=== PATIENT | male | born 1965 | race Caucasian/White ===

== ENCOUNTER 2021-05-15 14:37 | Emergency (ER) | payer MEDICAID, SELFPAY ==
[2021-05-15 18:03] LABS: MANUAL DIFF FLAG NO
[2021-05-15 18:05] LABS: Basophils Absolute Auto 0.1 X10*3/uL (0.0-0.2); Basophils Percent Auto 1.2 % (0-2); Eosinophils Absolute Auto 0.2 X10*3/uL (0.0-0.4); Eosinophils Percent Auto 2.5 % (0-4); Hematocrit 48.8 % (42-52); Hemoglobin 16.6 g/dl (14.0-18.0); Imm Gran Abs Auto 0.01 X10*3/uL (0.00-0.03); Imm Gran Pct Auto 0.2 % (0.0-0.4); Lymphocytes Absolute Auto 2.5 X10*3/uL (1.2-4.9); Lymphocytes Percent Auto 38.3 % (20-40); Mean Corpuscular Volume 88.2 fL (80-98); Mean Platelet Volume 9.7 fL (9.4-12.4); Monocytes Absolute Auto 0.6 X10*3/uL (0.1-1.2); Monocytes Percent Auto 8.7 % (2-11); Neutrophils Absolute Auto 3.2 X10*3/uL (2.0-8.3); Neutrophils Percent Auto 49.1 % (45-73); Platelet Count 226 X10*3/uL (160-400); Red Blood Count 5.53 X10*6/uL (4.60-5.80); Red Cell Distribution Width 13.6 % (11.0-16.0); White Blood Count 6.4 X10*3/uL (4.8-10.8)
[2021-05-15 18:11] VITALS: BP 162/104; PULSE 59; RESP 18; TEMP 36.9; O2SAT 97
[2021-05-15 18:20] LABS: Alanine Aminotransferase 21 U/L (0-40); Albumin Level 4.3 g/dL (3.5-5.0); Alkaline Phosphatase 59 U/L (39-117); Anion Gap 13 (12-20); Aspartate Amino Transferase 21 U/L (5-37); Bilirubin Direct 0.3 mg/dL (0.0-0.5); Bilirubin Total 0.9 mg/dL (0.0-1.0); Blood Urea Nitrogen 11 mg/dL (9-16); Calcium 9.5 mg/dL (8.4-10.2); Carbon Dioxide 27 mmol/L (22-29); Chloride 108 mmol/L (96-108); Estimated Glomerular Filt Rate > 60; Glucose Random 90 mg/dL (60-115); Lipase 19 U/L (8-78); Potassium 4.2 mmol/L (3.3-5.1); Sodium 144 mmol/L (135-145); Total Protein 6.9 g/dL (6.5-8.0)
== END 2021-05-15 18:53 | disposition left against medical advice (07) ==
LOC: HO.ED 18:52
PROVIDERS: Emergency Provider Emergency Medicine
DX: R11.10 Vomiting, unspecified (principal)
CPT/HCPCS: 36415; 80053; 82248; 83690; 85025; 99283

== ENCOUNTER 2021-05-15 21:39 | Emergency (ER) | payer MEDICAID, SELFPAY ==
[2021-05-15 21:55] VITALS: BP 147/125; PULSE 16; RESP 16; TEMP 36.5; O2SAT 56; BMI 19.5
[2021-05-15 22:26] LABS: COVID-19 Test Negative (Negative)
--- NOTE | 2021-05-15 22:59 | ED.GENADULT ---
HPI - General Adult General Chief complaint: Nausea/Vomiting/Diarrhea Stated complaint: ? 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 Currently, patient denies fever, chills, dizziness, headache, sore throat, cough, GI or symptoms. And denies any shortness of breath or chest pain. Related Data Allergies Allergy/AdvReac Type Severity Reaction Status Date / Time No Known Allergies Allergy Verified 05/15/21 21:53 Review of Systems Review of Systems: Pertinent positives and negatives as stated in HPI 10 point review of systems is otherwise negative PMFSH Past Medical History Source: nursing notes reviewed Medical History No known health problems Social History Social History Advance Directives: No Advance Directives Information Provided: Yes Physical Exam Vital Signs: Vital Signs: Last Vital Signs Temp 97.7 F 05/15/21 21:55 Pulse 16 L 05/15/21 21:55 Resp 16 05/15/21 21:55 BP 147/125 H 05/15/21 21:55 Pulse Ox 56 L 05/15/21 21:55 Body Mass Index 19.5 VITAL SIGNS: Reviewed. GENERAL: Well developed, well nourished, in no acute distress. HEAD: Normocephalic/atraumatic EYES: PERRLA, EOMI EARS: Ext canals without abnormality OROPHARYNX: no oral lesions noted, posterior pharynx clear and non-erythematous without noted tonsillar enlargement/erythema/exudates NECK: Supple, no adenopathy LUNGS: Normal breath sounds CARDIOVASCULAR: Regular rate and rhythm without noted murmurs ABDOMEN: Soft, non-tender, non-distended with bowel sounds. SKIN: Inspection of the skin reveals no rashes NEUROLOGIC: Alert and oriented x 4. Strength and sensation to light touch were grossly intact x 4. Course Course Course Narrative: 56-year-old male with history and clinical presentation consistent with likely transient gastroenteritis which has since resolved and review of all investigations is otherwise negative. All results and findings were discussed with him at bedside via building maintenance worker and he was discharged home in stable condition Medical Decision Making Lab Data Labs: Lab Results 05/15/21 Range/Units 22:03 COVID-19 (CRISTIANE) Negative (Negative) COVID-19 Clin Com See Note Discharge Plan Discharge Clinical Impression: Gastroenteritis, Lab test negative for COVID-19 virus Patient Disposition: Home, Self-Care Instructions: Gastroenteritis (ED) Additional Instructions: 1. Reanude todos los medicamentos caseros seg?n lo prescrito. 2. Granados prueba de COVID-19 aqu? hoy fue negativa. Regrese a la karlo de emergencias por un empeoramiento mati de los s?ntomas. Stand Alone Forms: Work/School Release Print Language: Anguillan
[2021-05-15 23:02] VITALS: RESP 18; O2SAT 98
== END 2021-05-15 23:08 | disposition home or self-care (01) ==
PROVIDERS: Emergency Provider Student in an Organized Health Care Education/Training Program
DX: K52.9 Noninfective gastroenteritis and colitis, unspecified (principal); Z20.822 Contact with and (suspected) exposure to COVID-19
CPT/HCPCS: 36415; 87635; 99283

== ENCOUNTER 2023-02-21 13:31 | Emergency (ER) | payer MEDICAID, SELFPAY ==
--- NOTE | ~2023-02-21 | US_ITS ---
EXAMINATION: US VENOUS ULTRASOUND WITH DOPPLER LOWER EXTREMITY, RIGHT CLINICAL INFORMATION: Right lower extremity pain. COMPARISON: None available. TECHNIQUE: Ultrasound of the deep veins is performed from the hip to the calf with compression sonography and color and pulse Doppler assessment. Spectral analysis with color-flow imaging is performed. FINDINGS: There is normal venous compression and respiratory variation and augmented flow. The visualized common femoral vein, superficial femoral vein, profunda femoral vein, popliteal vein, and the trifurcation region shows no evidence of deep venous thrombosis. The left common femoral vein is patent. Positive superficial thrombus is seen in the small saphenous vein. No right popliteal cyst. Mild subcutaneous edema in the right calf. US/US venous duplex LE RT IMPRESSION: 1. No evidence for deep venous thrombosis in the visualized veins of the right lower extremity. 2. Positive superficial thrombus in the small saphenous vein. 3. Mild subcutaneous edema in the right calf.
--- NOTE | ~2023-02-21 | XR_ITS ---
EXAMINATION: XR KNEE, RIGHT CLINICAL INFORMATION: Right knee pain. COMPARISON: None available. TECHNIQUE: Four views of the right knee. FINDINGS: Bones have normal alignment and joint spaces are maintained. No fracture, subluxation or joint effusion. There is negligible osteophyte formation at the upper pole of the patella. There are no significant degenerative changes. No intra-articular osteochondral body. XR/XR knee RT 3V IMPRESSION: * No significant radiographic findings at right knee. No fracture or joint effusion. * Negligible osteophyte formation at the upper pole of the patella.
[2023-02-21 13:44] VITALS: BP 144/101; PULSE 78; RESP 18; TEMP 36.3; O2SAT 99; BMI 19.6
--- NOTE | 2023-02-21 13:45 | ED_ITS ---
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 He reports that he hit his leg 6 days ago. He has had increasing pain since and is painful to walk, but he is able to walk Denies any history of DVTs. No other complaints or concerns at this time Related Data Allergies Allergy/AdvReac Type Severity Reaction Status Date / Time No Known Allergies Allergy Verified 02/21/23 13:43 Review of Systems Musculoskeletal: Musculoskeletal: Reports joint swelling Comments: Right calf pain PMFSH Past Medical History Medical History No known health problems Social History Social History Advance Directives: No Advance Directives Information Provided: No Physical Exam ED Vital Signs: Vital Signs - 24 hr 02/21/23 13:44 Temperature 97.4 F Pulse Rate 78 Respiratory Rate 18 Blood Pressure 144/101 H Pulse Oximetry 99 Oxygen Delivery Method Room Air BMI result Body Mass Index 19.6 Const General: healthy appearing, comfortable, no acute distress, alert and awake Nutritional Appearance: well nourished Orientation/consciousness: patient oriented x3 HENMT Head: Yes normocephalic and Yes atraumatic Eyes Eyelids: Yes eyelids normal Conjunctivae: conjunctivae normal Sclerae: sclerae normal Corneas: corneas normal Pupils: Equal, round and reactive pupils present EOM: EOMs intact bilaterally Neck Neck: Yes full ROM Resp Effort & Inspection: normal respiratory effort, able to speak in complete sentences and not labored Cardio Rate: regular rate Rhythm: regular rhythm Neuro General: patient oriented x3 Cranial nerves: Yes Equal, round and reactive pupils present and Yes Bilaterally intact EOM present Cognition (Neuro): normal cognition Extrem Other: Mild right calf tenderness with palpable cord in the medial aspect of the right lower extremity along the calf. Patient has no overlying skin changes, no erythema. No left knee joint effusion. No edema to the left knee Course Course Course Narrative: RME- 57-year-old male presents for evaluation of pain behind his right knee. He reports the injury 6 days ago. Plan for x-ray of the knee and so he remained to have Medical Decision Making Medical Decision Making MDM Narrative: Patient had a minor injury to the right lower extremity less than week ago. We did ultrasound to rule out DVT and an x-ray to rule out fracture but I have a low suspicion for fracture. Differential Diagnosis Differential Diagnoses: The differential diagnosis associated with the presentation includes DVT Thrombophlebitis Contusion Hematoma Fracture Arthritis Independent Interpretation I performed an independent interpretation of an: Plain X-Ray Interpretation: No acute fracture of the right knee Radiology Impression Discussion of test interpretation with radiology: I have reviewed the radiologist's reading. Radiologist Impression: Superficial thrombophlebitis of the right lower extremity with no evidence of DVT Discharge Plan Discharge Clinical Impression: Superficial thrombophlebitis of right leg Patient Disposition: Home, Self-Care Instructions: Superficial Thrombophlebitis (ED) Additional Instructions: Your ultrasound shows superficial thrombophlebitis. There are no deep vein thrombosis or blood clot Your x-ray does not show any fractures Use warm compresses to the painful area and you may use ibuprofen or a baby aspirin to treat the symptoms Follow-up with your primary doctor Stand Alone Forms: Work/School Release
== END 2023-02-21 16:38 | disposition home or self-care (01) ==
PROVIDERS: Emergency Provider Emergency Medicine Emergency Medical Services
DX: I80.01 Phlebitis and thrombophlebitis of superficial vessels of right lower extremity (principal); M79.661 Pain in right lower leg
CPT/HCPCS: 73562; 93971; 99282; 99284

== ENCOUNTER → 2023-05-10 12:57 | Outpatient (BNVA) | payer OTHER, SELFPAY | PROVIDERS: Visit Provider Physician Assistant Medical | DX: S67.195A Crushing injury of left ring finger, initial encounter (principal); S67.197A Crushing injury of left little finger, initial encounter; S60.152A Contusion of left little finger with damage to nail, initial encounter; W22.8XXA Striking against or struck by other objects, initial encounter | CPT/HCPCS: 29130; 99203 ==

== ENCOUNTER 2023-05-23 11:24 | Outpatient (AMB) | payer OTHER, SELFPAY ==
--- NOTE | 2023-05-23 11:35 | A.OFFVIS_ITS ---
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 He reports that he got his finger p inched with a machine at work. Having numbness and tingling on tip of his finger. 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 The patient reports that a steel bar dropped onto his hand at work. He confirms nu mbness and tingling on the tip of the 5th digit. [facility] Medical History No known health problems Social History (Updated 05/23/23 @ 11:39 by Ji Camarena) Alcohol intake: current Patient Tobacco Use Status: Current everyday Tobacco user Current occupational status: employed Current occupation: machine opperator/ ambidextrous Review of Systems Const All systems reviewed & are unremarkable except as noted in HPI and below Physical Exam Vital Signs: BMI result Body Mass Index 19.6 Const General: cooperative and no acute distress Orientation/consciousness: patient oriented x3 Resp Effort & Inspection: normal respiratory effort and able to speak in complete sentences Cardio Peripheral pulses: Peripheral pulses 2+ throughout Skin General skin exam: no rashes or lesions noted Neuro General: patient oriented x3 Extrem Other: Left hand: Little finger; subungual hematoma at the nail bed. No additional nail disruption. No open wound. No erythema or drainage. No signs of infection in the little finger. Able to flex and extend at the DIP, PIP, and CMC. Small super ficial abrasion over the middle phalanx on the dorsal side. Able to perform full finger flexion, extension, abduction, adduction, finger cross, okay sign, and thumbs up without deficit. Able to make a closed fist. Sensation intact. Capillary refill is brisk. Radial pulse intact. Assessment & Plan Assessment & Plan (1) Fracture of fifth metacarpal bone of left hand: Comment: Tuft fracture 5th distal phalanx Code(s): S62.307A - Unspecified fracture of fifth metacarpal bone, left hand, initial encounter for closed fracture Qualifiers: Encounter type: initial encounter Fracture alignment: nondisplaced Fracture type: open Metacarpal location: other portion of metacarpal Qualified Code(s): S62.397B - Other fracture of fifth metacarpal bone, left hand, initial encounter for open fracture Plan Mr. Farooq Encinas is a 58-year-old male, who is Kyrgyz speaking, presents in the office today, as a new patient, for an evaluation of left hand pinky digit pain. The patient reports he got his finger pinched in a machine at work. He confirms numbness and tingling on the tip of the 5th digit. The patient states he is experiencing a great deal of pain when the distal phalanx comes in contact with any surface. Therefore, he was given a small finger splint, off the shelf, to immobilize the distal aspect of the little finger for protection. He does not need to wear the splint at all times, but does when performing fine motor movements. I discussed the role of antibiotics with the patient due to the possibility of an open fracture with nail bed involvement. However, due to the injury occurring 2 weeks and he does not exhibit any signs of infection we have deferred at this time. He was educated on signs of infection, which are as follows but not limited to erythema, edema, drainage, or warmth. If he is to experience any of these symptoms he is to contact the office immediately or present to the ED. The patient is extremely concerned about his work status. He has been working since the injury and states he keeps injuring the area due to motor skill activities like gripping machinery. Therefore, a work note was given to him today stating he will remain out of work until follow up. Follow up will be in 4 weeks with repeat x-rays, or sooner if needed. X-rays of the left hand obtained while in the office today and reviewed by me, Salome Nickerson PA-C, revealed tuft fracture 5th distal phalanx. Orders: Orders XR hand LT min 3V Today M79.643 - Pain in unspecified hand Patient Instructions: Scribed for Salome Nickerson PA-C by Debi Bah medical laboratory manager, on 05/23/2023 at 11:37 am, EST. Coding Level of Care Code New Pt Level 4 (03420) Diagnoses Open nondisplaced fracture of other part of fifth metacarpal bone of left hand, initial encounter S62.397B Encounter type: initial encounter Fracture alignment: nondisplaced Fracture type: open Metacarpal location: other portion of metacarpal
[2023-05-23 11:40] VITALS: BMI 19.6
== END 2023-05-23 12:10 | disposition home or self-care (01) ==
PROVIDERS: Visit Provider Physician Assistant
DX: S62.397B Other fracture of fifth metacarpal bone, left hand, initial encounter for open fracture (principal)
CPT/HCPCS: 99203

== ENCOUNTER 2023-05-23 17:23 | Outpatient (REF) | payer OTHER, SELFPAY ==
--- NOTE | ~2023-05-23 | XR_ITS ---
EXAMINATION: XR HAND, LEFT CLINICAL INFORMATION: Pain in unspecified hand. COMPARISON: 05/10/2023 left 5th finger. TECHNIQUE: PA, lateral, and oblique views of the left hand. FINDINGS: There is a mildly displaced, comminuted fracture of the distal tuft of the 5th digit with adjacent soft tissue swelling. Moderate degenerative changes 1st carpometacarpal joint with joint space narrowing and hypertrophic change. XR/XR hand LT min 3V IMPRESSION: Redemonstration of mildly displaced, comminuted fracture of the distal tuft of the 5th digit. Fracture line lucency is more conspicuous suggesting some resorption.
== END 2023-05-23 17:24 | disposition home or self-care (01) ==
LOC: HO.HOSX 17:23
PROVIDERS: Visit Provider Physician Assistant
DX: S62.397B Other fracture of fifth metacarpal bone, left hand, initial encounter for open fracture (principal)
CPT/HCPCS: 73130; 99202

== ENCOUNTER 2023-06-20 11:33 | Outpatient (AMB) | payer OTHER, SELFPAY ==
[2023-06-20 11:53] VITALS: BMI 19.6
--- NOTE | 2023-06-20 11:53 | A.OFFVIS_ITS ---
Intake Vital Signs 06/20/23 11:53 Height 5 ft 7 in Weight 125 lb BMI 19.6 Intake Visit Reasons: OV-Crush Injury L hand 4,5th digits Intake Note: Titus is a 58 year old right hand dominant male who presents today as a new patient for a evaluation for his left pinky finger pain, DOI 05/03/23. He reports still having pain in his pinky. He states that his pain has not improved. Allergies No Known Allergies Allergy (Verified 06/20/23 11:53) HPI OV-Crush Injury L hand 4,5th digits HPI Details 58-year-old right hand dominant male, wh o is Ukrainian speaking, presents in the office today for a follow up of a left hand 5th metacarpal fracture, which occurred in 04/2023 status post a steel bar dropped onto his hand at work. The patient reports he is still having pain in his pinky. He claims his pain has not improved. [facility] Medical History No known health problems (Updated 05/23/23 @ 11:39 by Ji Camarena) Alcohol intake: current Patient Tobacco Use Status: Current everyday Tobacco user Current occupational status: employed Current occupation: machine opperator/ ambidextrous Review of Systems Const All systems reviewed & are unremarkable except as noted in HPI and below Physical Exam Vital Signs: BMI result Body Mass Index 19.6 Const General: cooperative, healthy appearing and no acute distress Resp Effort & Inspection: normal respiratory effort and able to speak in complete sentences Cardio Rate: regular rate Peripheral pulses: Peripheral pulses 2+ throughout GI Palpation (GI): Soft to palpation Skin Lesions: no lesions Rashes: no rashes Extrem Other: Left small finger: Subungual hematoma remains. Slight tenderness to palpation at the distal phalanx. Able to flex and extend at DIP, PIP, and CMC with out any difficulty. Sensation intact. Capillary refill is brisk. Assessment & Plan Assessment & Plan (1) Fracture of fifth metacarpal bone of left hand: Comment: Tuft fracture 5th distal phalanx Code(s): S62.307A - Unspecified fracture of fifth metacarpal bone, left hand, initial encounter for closed fracture Qualifiers: Encounter type: initial encounter Fracture alignment: nondisplaced Fracture type: open Metacarpal location: other portion of metacarpal Qualified Code(s): S62.397B - Other fracture of fifth metacarpal bone, left hand, initial encounter for open fracture Plan Mr. aFrooq Encinas is a 58-year-old right hand dominant male, who is Ukrainian speaking, presents in the office today for a follow up of a left hand 5th metacarpal fracture, which occurred in 04/2023 status post a steel bar dropped onto his hand at work. The patient reports he is still having pain in his pinky. He claims his pain has not improved. The patient complains of residual pain at the distal phalanx, therefore, I have placed a referral to occupational therapy. 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 Follow up will be PRN, or sooner if needed. X-rays of the left hand which were obtained while in the office today and were reviewed by me, Salome Nickerson PA-C, revealed routine healing of a left hand tuft fracture 5th distal phalanx Orders: Orders XR hand LT min 3V Today M79.643 - Pain in unspecified hand OT Evaluation and Treatment Today S62.307A - Unspecified fracture of fifth metacarpal bone, left hand, initial encounter for closed fracture Patient Instructions: Scribed for Salome Nickerson PA-C by Debi Bah phlebotomist medical lab assistant, on 06/20/2023 at 12:02 pm, EST. Coding Level of Care Code Global (01153) Diagnoses Open nondisplaced fracture of other part of fifth metacarpal bone of left hand, initial encounter S62.397B Encounter type: initial encounter Fracture alignment: nondisplaced Fracture type: open Metacarpal location: other portion of metacarpal
== END 2023-06-20 12:24 | disposition home or self-care (01) ==
PROVIDERS: Visit Provider Physician Assistant
DX: S62.397B Other fracture of fifth metacarpal bone, left hand, initial encounter for open fracture (principal)
CPT/HCPCS: 99213

== ENCOUNTER 2023-06-20 12:06 | Outpatient (REF) | payer OTHER, SELFPAY ==
--- NOTE | ~2023-06-20 | XR_ITS ---
EXAMINATION: XR HAND, LEFT CLINICAL INFORMATION: Left hand pain COMPARISON: None available. TECHNIQUE: PA, lateral, and oblique views of the left hand. FINDINGS: Soft tissue swelling distal fifth digit with displaced fracture of the tuft. Small bony fragment is also identified at the ulnar aspect fracture site. No additional fractures recognized. XR/XR hand LT min 3V IMPRESSION: Displaced fracture left fifth distal phalanx.
== END 2023-06-20 12:07 | disposition home or self-care (01) ==
LOC: HO.HOSX 12:06
PROVIDERS: Visit Provider Physician Assistant
DX: S62.397B Other fracture of fifth metacarpal bone, left hand, initial encounter for open fracture (principal)
CPT/HCPCS: 73130; 99212

== ENCOUNTER 2023-08-01 10:36 | Emergency (ER) | payer SELFPAY ==
[2023-08-01 11:48] VITALS: BP 136/92; PULSE 82; RESP 16; TEMP 37.2; O2SAT 98; BMI 19.0
[2023-08-01 12:48] LABS: IDNOW Serial# 9DB6401D
[2023-08-01 12:49] LABS: Influenza A Positive (Negative); Influenza B2 Negative (Negative)
[2023-08-01 12:50] LABS: COVID-19 Test Negative (Negative); IDNOW Serial# 08D9AD1C; IDNOW Serial# BCCEAD1C; Strep A Nucleic Acid Negative (Negative)
--- NOTE | 2023-08-01 13:42 | ED_ITS ---
HPI - General Adult General Chief complaint: Upper Respiratory Symptoms Stated complaint: Body aches Time Seen by Provider: 08/01/23 13:41 Source: patient Mode of arrival: ambulatory Limitations: no limitations History of Present Illness HPI narrative: This is a 58-year-old male presenting for evaluation of fatigue, malaise, myalgias, chills all of which started suddenly 3 days ago. + boss known sick contact. Denies chest pain, shortness of breath, headache, vision changes, dizziness, nausea, vomiting, diarrhea. Patient eating and drinking well without difficulty Related Data Home Medications Medication Instructions Recorded Confirmed No Known Home Meds 05/23/23 05/23/23 Allergies Allergy/AdvReac Type Severity Reaction Status Date / Time No Known Allergies Allergy Verified 06/20/23 11:53 Review of Systems Review of Systems: Yes all other systems are reviewed and are negative PMFSH Past Medical History Attestation statement: The following information was validated with the patient. Source: old records reviewed and nursing notes reviewed Onset Date is defined in the Problem List Problems that require an onset date and time if occurred within 24 hrs of arrival to the ED Aortic Dissection and Rupture; Neurologic impairment; Cardiopulmonary Arrest; Endotracheal Intubation; Insertion or Replacement of Mechanical Circulatory Assist Device Medical History No known health problems Social History Social History (Updated 05/23/23 @ 11:39 by Ji Camarena) Alcohol intake: current Patient Tobacco Use Status: Current everyday Tobacco user Current occupational status: employed Current occupation: machine opperator/ ambidextrous Physical Exam ED Vital Signs: Vital Signs - 24 hr 08/01/23 11:48 Temperature 98.9 F Pulse Rate 82 Respiratory Rate 16 Blood Pressure 136/92 H Pulse Oximetry 98 Oxygen Delivery Method Room Air BMI result Body Mass Index 19.0 Vital signs stable Appearance: Alert.? Oriented X3.? No acute distress.? Head: Normocephalic, atraumatic, no step-offs or deformities Eyes: Pupils equal, round and reactive to light.? Neck: Normal inspection.? Neck supple.? CVS: Normal heart rate and rhythm.? Pulses normal.? Respiratory: No respiratory distress.? Breath sounds normal.? Abdomen: Soft and nontender.? Skin: Skin warm and dry.? Normal skin color.? Normal skin turgor.? Extremities: 5/5 strength to bilateral upper and lower extremities Neuro: Oriented X 3.? No motor deficit.? No sensory deficit. CN 2-12 intact Course Reevaluation(s) Reevaluation #1: Not canidate for tamiflu sx onset > 48 hours. Will discharge with supportive measures. Educated patient on diagnosis and treatment plan, answered all question, patient verbalizes understanding. At this time patient will be discharged home, advised to return with new or worsening symptoms. Educated on worrisome signs and symptoms and when to return. At this time I feel comfortable discharge home. Time: 13:44 Medical Decision Making Medical Decision Making [facility] Narrative: 58-year-old male presents for evaluation of fatigue, body aches and pains, chills X 3 days. Sudden onset. + sick contacts Physical exam benign History and physical exam concerning for viral illness flu versus COVID versus RSV. Unlikely pneumonia, acute respiratory distress, ACS. Unlikely rhabdo unlikely metabolic derangements. No indication for labs or imaging Plan at this time viral test Differential Diagnosis Differential Diagnoses: The differential diagnosis associated with the presentation includes History and physical exam concerning for viral illness flu versus COVID versus RSV. Unlikely pneumonia, acute respiratory distress, ACS. Unlikely rhabdo unlikely metabolic derangements. Admission/Observation Consideration of admission/observation: Escalation of care including admission/observation considered unlikley Lab Data [facility] Lab Attestation statement: I reviewed the patient's lab results. Labs: Lab Results 08/01/23 Range/Units 12:26 COVID-19 (CRISTIANE) Negative (Negative) COVID-19 Clin Com See Note Influenza Type A (MICHELLE) Positive A (Negative) Influenza Type B (MICHELLE) Negative (Negative) Influenza A & B Note See Note S. pyogenes GrpA MICHELLE Negative (Negative) Discharge Plan Discharge Clinical Impression: Influenza Patient Disposition: Home, Self-Care Instructions: Influenza (ED), Influenza (DC) Additional Instructions: Take your medications as prescribed. If you were prescribed antibiotics today, it is important that you take your medication to their entirety, do not skip any doses, do not finish them early. Follow-up with your primary care provider this week. Return to the emergency department with new or worsening symptoms. Such as fevers, chills, chest pain, shortness of breath, nausea, vomiting, dizziness, headache, vision changes, lethargy In case of emergency call 911 You can take ibuprofen every 6 hours, Tylenol every 4 as needed for fevers, pain or discomfort [place] vishnu medicamentos seg?n lo recetado. Si hoy te recetaron antibi?ticos, es importante que tomes tu medicaci?n en painter totalidad, no te saltes ninguna dosis, no las termines antes de tiempo. Tomas un seguimiento con painter proveedor de atenci?n primaria esta semana. Regrese al departamento de emergencias si los s?ntomas son nuevos o empeoran. Earlene fiebre, escalofr?os, dolor de pecho, dificultad para respirar, n?useas, v?mitos, mareos, dolor de alli, cambios en la visi?n, letargo. En gabriela de emergencia llame al 911. Puede micaela ibuprofeno cada 6 horas, Tylenol cada 4 seg?n sea necesario para fiebre, dolor o malestar. Prescriptions: No Action No Known Home Meds Referrals: ED Physician,Generic [Physician] - 2 days Stand Alone Forms: Work/School Release
[2023-08-01 13:47] VITALS: BP 144/97; PULSE 87; RESP 18; TEMP 37.5; O2SAT 97
== END 2023-08-01 13:54 | disposition home or self-care (01) ==
LOC: HO.ED 13:52
PROVIDERS: Emergency Provider Emergency Medicine
DX: J10.1 Influenza due to other identified influenza virus with other respiratory manifestations (principal); Z11.52 Encounter for screening for COVID-19; F17.200 Nicotine dependence, unspecified, uncomplicated
CPT/HCPCS: 87502; 87635; 87651; 99282; 99283